=== PATIENT | female | born 1980 | race Caucasian/White ===

== ENCOUNTER 2017-12-01 00:54 | Inpatient (IN) | payer OTHER, SELFPAY ==
[2017-12-01] MEDS ORDERED: OXYTOCIN 30 UNITS IN 0.9% NaCl 500ML IV BAG (J2590) As Ordered (00:57)
[2017-12-01 01:24] LABS: CORD GAS ABE V -3.3; CORD GAS HCO3 V 20.1 MEQ/L; CORD GAS O2 SAT V 72.3 %; CORD GAS PCO2 V 32.6 mmHg; CORD GAS PH V 7.408 UNITS; CORD GAS PO2 V 30.7 mmHg; CORD GAS TCO2 V 21.1 MEQ/L
[2017-12-01] MEDS: LIDOCAINE 1% MDV 20ML VIAL INFIL (01:30)
[2017-12-01] MEDS ORDERED: DOCUSATE SODIUM 100 MG CAP PO (01:45)
[2017-12-01] MEDS ORDERED: IBUPROFEN 800 MG TAB PO (01:45)
[2017-12-01] MEDS ORDERED: PROMETHAZINE 25 MG TAB PO (01:45)
[2017-12-01] MEDS ORDERED: METHYLERGONOVINE MALEATE 0.2 MG TAB PO (01:45)
[2017-12-01 01:46] LABS: HEMOGLOBIN 10.9 g/dl (12.0-15.5); MEAN CORPUSCULAR HEMOGLOBIN 27.3 pg (27.0-33.0); MEAN CORPUSCULAR HGB CONC 32.1 g/dl (32.0-36.5); PLATELET COUNT, AUTOMATED 184 10^3/uL (150-450); RED CELL DISTRIBUTION WIDTH 12.6 % (11.5-14.5); WHITE BLOOD COUNT 10.2 10^3/uL (4.0-10.0)
[2017-12-01] MEDS: OXYTOCIN DRIP 30 UNITS in APPROPRIATE DILUENT 1 EA IV (04:12)
[2017-12-01] MEDS: LR 1,000 ML IV (05:25)
[2017-12-01] MEDS: RHOGAM 300 MCG (1500 IU) INJ (J2790) IM (07:05)
[2017-12-01] MEDS: MEASLES,MUMPS,RUBELLA VACCINE INJ (MMR-II) (90707) SC (07:05)
[2017-12-01] MEDS: PRENATAL VITAMINS CHEWABLE TABLET PO (08:24)
[2017-12-01] MEDS: FAMOTIDINE 20 MG TAB PO (08:24)
[2017-12-01] MEDS: SERTRALINE 100 MG TAB PO (10:07)
[2017-12-01] MEDS: DIBUCAINE 1% OINTMENT 30GM TOP (17:57)
[2017-12-01] MEDS: ACETAMINOPHEN 500 MG TAB PO (20:12)
[2017-12-02] MEDS: SERTRALINE 100 MG TAB PO (09:44)
[2017-12-02] MEDS: FAMOTIDINE 20 MG TAB PO (09:44)
[2017-12-02] MEDS: PRENATAL VITAMINS CHEWABLE TABLET PO (09:44)
[2017-12-02] MEDS: ADACEL/BOOSTRIX VACCINE (DIPHTH/PERTUSS/ACELL/TETANUS)0.5ML SYR (90715) IM (09:45)
== END 2017-12-02 17:43 | disposition home or self-care (01) | DRG 775 ==
LOC: M LDI 00:54 → M OBS 03:53
PROC: 10E0XZZ Delivery of Products of Conception, External Approach (ICD-10-PCS; principal; 2017-12-01)
PROC: 0KQM0ZZ Repair Perineum Muscle, Open Approach (ICD-10-PCS; 2017-12-01)
DX: O34.211 Maternal care for low transverse scar from previous cesarean delivery (principal); Z37.0 Single live birth; Z3A.39 39 weeks gestation of pregnancy; O09.523 Supervision of elderly multigravida, third trimester; O70.1 Second degree perineal laceration during delivery